=== PATIENT | female | born 1980 | race American Indian/Alaskan Native ===

== ENCOUNTER 2021-03-07 00:09 | Emergency (ER) | payer OTHER ==
[2021-03-07] MEDS ORDERED: HYOSCYAMINE SUBL 0.125 MG TAB SL ONE (01:14)
[2021-03-07] MEDS ORDERED: ONDANSETRON 4 MG ODT TAB PO STA (01:14)
[2021-03-07 02:04] LABS: Bilirubin,Urine NEG (Negative); Blood,Urine NEG (Negative); Color,Urine Yellow (Yellow); Mucus,Urine 3+ /HPF; Urobilinogen,Urine < 2.0 mg/dL (<2.0)
[2021-03-07 02:05] LABS: HCG Qualitative,Urine Negative (Negative)
[2021-03-07 02:19] LABS: Hematocrit 36.4 % (30.3-42.9); Hemoglobin 12.9 gm/dl (10.1-14.3); Mean Corpuscular HGB Conc 35 % (30-34); Mean Corpuscular Volume 96 fl (79-97); Platelet Count 311 K/mm3 (140-440); Red Blood Count 3.78 M/mm3 (3.65-5.03); Red Cell Distribution Width 12.6 % (13.2-15.2)
[2021-03-07 02:38] LABS: Blood Urea Nitrogen 12 mg/dL (7-17); Calcium 9.9 mg/dL (8.4-10.2); Hemolysis Index 17
[2021-03-07 02:41] LABS: BUN/Creatinine Ratio 24
[2021-03-07 02:42] LABS: Alanine Aminotransferase 25 units/L (7-56)
[2021-03-07 02:48] LABS: Bilirubin,Direct < 0.2 mg/dL (0-0.2)
--- NOTE | 2021-03-07 03:26 | Emergency Department Report ---
ED N/V/D HPI - General Chief complaint: Abdominal Pain Stated complaint: STOMACH PAIN/VOMITING Time Seen by Provider: 03/07/21 01:13 Source: patient Mode of arrival: Ambulatory Limitations: No Limitations - History of Present Illness Initial comments: 41-year-old male female [facility] emerge department complaining eating some fluid on Development some abdominal pain and cramps which showed follow-up of frequent vomiting and diarrhea episodes of unknown etiology no hemoptysis no hematemesis hematochezia, no chest pain, no palpitations, no fever, chills, sweats MD complaint: nausea, vomiting, diarrhea, abdominal pain -: Gradual, Sudden Associated Abdominal Pain: Yes Location: diffuse Radiation: none Severity: mild Quality: aching Improves with: none Worsens with: none Associated Symptoms: myalgias, malaise, nausea/vomiting. denies: diaphoresis, fever/chills, loss of appetite, rash, syncope, weakness - Related Data Previous Rx's Medication Instructions Recorded Last Taken Type Hyoscyamine Subl [Levsin Sl 0.125 0.125 mg SL Q6HR PRN #20 tab 03/07/21 Unknown Rx TAB] Omeprazole 40 mg PO DAILY #14 capsule. 03/07/21 Unknown Rx Ondansetron [Zofran ODT TAB] 8 mg PO Q12HR #14 tab.rapdis 03/07/21 Unknown Rx Allergies Allergy/AdvReac Type Severity Reaction Status Date / Time No Known Allergies Allergy Unverified 03/07/21 00:58 ED Review of Systems ROS: Stated complaint: STOMACH PAIN/VOMITING Other details as noted in HPI ED Past Medical Hx - Past Medical History Previous Medical History?: No - Surgical History Past Surgical History?: No - Medications Home Medications: Home Medications Medication Instructions Recorded Confirmed Last Taken Type Hyoscyamine Subl [Levsin Sl 0.125 0.125 mg SL Q6HR PRN #20 tab 03/07/21 Unknown Rx TAB] Omeprazole 40 mg PO DAILY #14 capsule. 03/07/21 Unknown Rx Ondansetron [Zofran ODT TAB] 8 mg PO Q12HR #14 tab.rapdis 03/07/21 Unknown Rx ED Physical Exam - General Limitations: No Limitations ED Course Vital Signs 03/07/21 00:53 Temperature 98.4 F Pulse Rate 103 H Respiratory 18 Rate Blood Pressure 135/80 [Right] O2 Sat by Pulse 97 Oximetry ED Medical Decision Making - Lab Data Result diagrams: 03/07/21 02:06 03/07/21 02:06 - Medical Decision Making Problem 1 vomiting and diarrhea Patient presents to the emergency department with nausea, vomiting, diarrhea, differential diagnosis includes possible acute gastroenteritis. Abdominal examination without peritoneal signs. Currently patient is euvolemic without evidence of dehydration. No evidence of surgical abdomen or other acute medical emergency including bowel obstruction, viscus perforation, vascular catastrophe, appendicitis, cholecystitis at this time. Presentation not consistent with other acute emergent causes of vomiting and diarrhea at this time. No indication for abdominal imaging Plan supportive care, oral/IV rehydration, antiemetics and reassess Problem 2 abdominal pain This patient presents with abdominal pain of unclear etiology. Their evaluation has not identified a emergent etiology for the abdominal pain. Specifically, given the very benign exam, normal laboratory studies, and lack of significant risk factors, I have a very low suspicion for appendicitis, ischemic bowel, bowel perforation, or any other life threatening disease. I have discussed with the patient the level of uncertainty with undifferentiated abdominal pain and clearly explained the need to follow-up as noted on the discharge instructions, or return to the Emergency Department immediately if the pain worsens, develops fever, persistent and uncontrollable vomiting, or for any new symptoms or concerns. I discussed with the patient that this presentation today for abdominal pain could represent a significant risk for an acute abdominal process. Although the tests in the ED were essentially normal, there is still a possibility of a process such as appendicitis, diverticulitis, cholecystitis, ulcer, early bowel obstruction, mesenteric ischemia, kidney stone, or even kidney infection which could subsequently cause disability or . The patient understands that they must return within 24 hours for a recheck or see their physician within 24 hours for re-exam due to the possibility of significant surgical or medical process. Critical care attestation.: If time is entered above; I have spent that time in minutes in the direct care of this critically ill patient, excluding procedure time. ED Disposition Clinical Impression: Vomiting, Diarrhea Disposition: 01 HOME / SELF CARE / HOMELESS Is pt being admited?: No Does the pt Need Aspirin: No Condition: Stable Instructions: Diarrhea, Adult, Abdominal Pain, Adult, Food Choices to Help Relieve Diarrhea, Adult, Nausea and Vomiting, Adult, Probiotics, Abdominal Pain (ED) Prescriptions: Hyoscyamine Subl [Levsin Sl 0.125 TAB] 0.125 mg SL Q6HR PRN #20 tab PRN Reason: abdominal cramps and spasms Omeprazole 40 mg PO DAILY #14 capsule. Ondansetron [Zofran ODT TAB] 8 mg PO Q12HR #14 tab.[email or web address] Referrals: [facility] [Provider Group] - 3-5 Days ZIA RODRIGUES MD [Staff Physician] - 3-5 Days
[2021-03-07 04:03] LABS: Platelet Estimate Consistent w Auto; RBC Morphology Normal; Total Cells Counted 100
[2021-03-07 04:15] VITALS: BP 117/76
== END 2021-03-07 04:12 | disposition home or self-care (01) ==
LOC: ED 00:09
DX: R11.10 Vomiting, unspecified (principal); R19.7 Diarrhea, unspecified; R10.84 Generalized abdominal pain; Z79.899 Other long term (current) drug therapy
CPT/HCPCS: 36415; 80048; 80076; 81001; 81025; 83690; 85007; 85025; 99283; J3490; Q0162